=== PATIENT | female | born 1980 | race Caucasian/White ===

== ENCOUNTER 2024-02-03 11:08 | Emergency (ER) | payer OTHER ==
[~2024-02-03] VITALS: Ht 160 cm; Wt 148.2 kg
[2024-02-03] MEDS ORDERED: IBUP-1022 PO (16:56)
[2024-02-03] MEDS: IBUPROFEN 600MG TAB PO ONE (17:07)
[2024-02-03 17:10] VITALS: BP 155/75; TEMP 98.2; O2SAT 100
== END 2024-02-03 17:10 | disposition home or self-care (01) ==
LOC: M ED 11:08
DX: S60.222A Contusion of left hand, initial encounter (principal); V49.40XA Driver injured in collision with unspecified motor vehicles in traffic accident, initial encounter; Y92.410 Unspecified street and highway as the place of occurrence of the external cause; Y93.9 Activity, unspecified; Y99.9 Unspecified external cause status; F17.200 Nicotine dependence, unspecified, uncomplicated